=== PATIENT | male | born 1945 | race Caucasian/White ===

== ENCOUNTER → 2019-06-05 | Outpatient (CLI) | payer MEDICARE | END | disposition home or self-care (01) | LOC: CFH 12:54 | PROVIDERS: ATTEND Physician Assistant Medical | DX: J90 Pleural effusion, not elsewhere classified (principal); I67.9 Cerebrovascular disease, unspecified; R07.89 Other chest pain; R06.02 Shortness of breath; I12.9 Hypertensive chronic kidney disease with stage 1 through stage 4 chronic kidney disease, or unspecified chronic kidney disease; N18.9 Chronic kidney disease, unspecified; E78.2 Mixed hyperlipidemia; I51.7 Cardiomegaly | CPT/HCPCS: 71046 ==

== ENCOUNTER → 2019-06-12 | Outpatient (CLI) | payer MEDICARE | END | disposition home or self-care (01) | LOC: CFH 14:24 | PROVIDERS: ATTEND Physician Assistant Medical | DX: J90 Pleural effusion, not elsewhere classified (principal); I13.10 Hypertensive heart and chronic kidney disease without heart failure, with stage 1 through stage 4 chronic kidney disease, or unspecified chronic kidney disease; N18.9 Chronic kidney disease, unspecified; I67.9 Cerebrovascular disease, unspecified; E78.2 Mixed hyperlipidemia; R06.02 Shortness of breath; R07.89 Other chest pain | CPT/HCPCS: 71046 ==